=== PATIENT | female | born 1980 ===

== ENCOUNTER 2017-11-22 05:45 | Inpatient (IN) | payer BC, SELFPAY ==
[2017-11-10 11:12] LABS: PLATELET COUNT 233 10^3/uL (150-400)
--- NOTE | 2017-11-21 14:47 | GHP ---
DATE OF ADMISSION: 11/22/2017 CHIEF COMPLAINT: Very heavy menstrual cycles and history of clotting disorder, unable to tolerate ho rmonal contraceptive. HISTORY OF PRESENT ILLNESS: The patient is a 36-year-old, G3, P3 who plans to have an abdominoplasty done at the same time, presented last month as a new patient complaining of very heavy menstrual cyc les and interest in permanent sterilization. Has a history of clotting disorder and desires steriliz ation for this reason, and then also has a family history of ovarian cancer. Pelvic ultrasound showe d a thickened endometrium at 1.2 cm with no flow, slightly enlarged uterus, possibly having some micheline omyosis features, and otherwise within normal limits for her of ovaries. We discussed treatment opti ons for all of the above diagnosis and decided that the hysterectomy would be the best next step, as well as removal of her fallopian tubes. PAST MEDICAL HISTORY: Basically negative, except for this history of clotting disorder during her pr egnancies. PAST SURGICAL HISTORY: 3 low transverse C-sections, plus the knee surgery. She also had a ruptured appendix at the age of 1. SOCIAL HISTORY: Negative for tobacco, occasional alcohol, and negative for recreational drugs. ALLERGIES: Codeine, Darvocet, and penicillin, all of the above cause anaphylaxis. OBSTETRICAL HISTORY: Significant for she had 3 C-sections and undiagnosed clotting disorder during t he last 2 pregnancies. GYNECOLOGICAL HISTORY: Paps have been up to date and normal. She complains of very heavy menstrual cycles affecting her quality of life and ability to leave the house sometimes. Ultrasound showed bas ically normal uterus with thickened endometrial lining. EXAM: VITAL SIGNS: Blood pressure was 120/78. LUNGS: Clear to auscultation. COR: Regular rate a nd rhythm. ABDOMEN: Soft. Previous scar noted. PELVIC: Normal pelvis. ASSESSMENT/PLAN: Menorrhagia, desire for permanent sterilization, history of clotting disorder of un known etiology and could not tolerate hormonal contraceptive, and also history of ovarian cancer. We will proceed with abdominal hysterectomy and removal of her fallopian tubes, bilateral salpingecto my. Patient is aware there is some increased risk of bladder injury due to her 3 previous C-sections and also her history of ruptured appendix will also cause possibly adhesive disease, but consent sig blaine. Patient comfortable with plan and will proceed with surgery tomorrow. /[id number]/MODL
[2017-11-22] MEDS ORDERED: LIDOCAINE 1% 2 ML INJ ID PRN (05:51)
[2017-11-22] MEDS ORDERED: LR 1,000 ML IV ONE (05:51)
[2017-11-22] MEDS ORDERED: MIDAZOLAM 2 MG/2 ML VIAL ONE (07:10)
[2017-11-22] MEDS ORDERED: VANCOMYCIN 1 GM in NS 250 ML IV ONE (07:30)
[2017-11-22] MEDS ORDERED: VANCOMYCIN HCL/NORMAL SALINE 250 ML IV ONE (07:30)
[2017-11-22] MEDS ORDERED: BUPIVACAINE 0.5% 30 ML SDV ONE (07:32)
[2017-11-22] MEDS ORDERED: morphINE PF 5 MG/10 ML INJ ONE (07:34)
[2017-11-22] MEDS ORDERED: fentaNYL 100 MCG/2 ML INJ ONE (07:34)
[2017-11-22] MEDS ORDERED: LIDOCAINE 2% 100 MG/5 ML SYR ONE (07:34)
[2017-11-22] MEDS ORDERED: BUPIVACAINE/DEXTROSE 7.5MG/ML 2 ML SPINAL AMP SP ONE (07:34)
[2017-11-22] MEDS ORDERED: PROPOFOL 200 MG/20 ML VIAL ONE (07:35)
--- NOTE | 2017-11-22 08:57 | PDANEPAE ---
ANE History of Present Illness CODY/BSO ANE Past Medical History - Cardiovascular History Hx Hypertension: No Hx Arrhythmias: No Hx Chest Pain: No Hx Coronary Artery / Peripheral Vascular Disease: No Hx CHF / Valvular Disease: No Hx Palpitations: No - Pulmonary History Hx COPD: No Hx Asthma/Reactive Airway Disease: No Hx Recent Upper Respiratory Infection: No Hx Oxygen in Use at Home: No Hx Sleep Apnea: No Sleep Apnea Screening Result - Last Documented: Negative - Neurologic History Hx Cerebrovascular Accident: No Hx Seizures: No Hx Dementia: No - Endocrine History Hx Diabetes: No - Renal History Hx Renal Disorders: No - Liver History Hx Hepatic Disorders: No - Neurological & Psychiatric Hx Hx Neurological and Psychiatric Disorders: Yes Neurological / Psychiatric History Comment: FREQUENT MIGRAINES OCCASIONALLY NEEDS STRONGER MEDS - Cancer History Hx Cancer: No - Congenital Disorder History Hx Congenital Disorders: No - GI History Hx Gastrointestinal Disorders: Yes Gastrointestinal History Comment: CONSTIPATION - Other Health History Other Health History: DYSMENORRHEA. BRUISES EASILY - Chronic Pain History Chronic Pain: Yes (ABDOMINAL) - Surgical History Prior Surgeries: RHINOPLASTY/DEVIATED SEPTUM. APPY. X3. LT KNEE ACL ANE Review of Systems Review of Systems: - Exercise capacity METS (RN): 5 METS ANE Patient History - Allergies Allergies/Adverse Reactions: acetaminophen [From Percocet] Allergy (Verified 11/07/17 11:21) Anaphylaxis bee pollen Allergy (Verified 11/07/17 11:22) coconut Allergy (Verified 11/07/17 11:22) hydrocodone [From Vicodin] Allergy (Verified 11/07/17 11:21) Swelling/neck,face,throat oxycodone [From Percocet] Allergy (Verified 11/07/17 11:21) Anaphylaxis Penicillins Allergy (Verified 11/07/17 11:21) Anaphylaxis propoxyphene [From Darvocet-N] Allergy (Verified 11/07/17 11:21) Anaphylaxis - Home Medications Home Medications: Acetaminophen/ASA/Caffeine [Excedrin Tablet (*)] 1 each PO DAILY PRN 11/07/17 [ Last Taken 2 Weeks Ago ~11/08/17] Butal/Asp/Caffeine-Fiorinal [Fiorinal 50-325-40 mg Cap (RX)] 1 each PO DAILY PRN 11/07/17 [Last Taken 2 Weeks Ago ~11/08/17] Herbals/Supplements -Info Only 1 ea PO DAILY 11/07/17 [Last Taken 2 Weeks Ago ~ 11/08/17] Ibuprofen [Motrin (*)] 200 mg PO DAILY PRN 11/07/17 [Last Taken 2 Weeks Ago ~02/13] - NPO status NPO Since - Liquids (Date): 11/21/17 NPO Since - Liquids (Time): 21:00 NPO Since - Solids (Date): 11/21/17 NPO Since - Solids (Time): 20:00 - Smoking Hx Smoking Status: Never smoked - Family Anes Hx Family Hx Anesthesia Complications: NEG ANE Labs/Vital Signs - Labs Result Diagrams: 11/10/17 10:36 - Vital Signs Blood Pressure: 124/75 Heart Rate: 80 Respiratory Rate: 12 O2 Sat (%): 95 Height: 180.34 cm Weight: 69.4 kg ANE Physical Exam - Airway Neck exam: FROM Mallampati Score: Class 1 Mouth exam: normal dental/mouth exam - Pulmonary Pulmonary: no respiratory distress - Cardiovascular Cardiovascular: regular rate and rhythym - ASA Status ASA Status: II ANE Anesthesia Plan Anesthesia Plan: general endotracheal anesthesia, spinal (duramorph discussion with patient and surgeon, benefits outweigh potential risks)
[2017-11-22] MEDS ORDERED: LIDOCAINE 1% 300 MG/30 ML SDV ONE (08:58)
[2017-11-22] MEDS ORDERED: EPINEPHrine 1 MG/ML INJ ONE ×2 (08:58→09:00)
[2017-11-22] MEDS ORDERED: fentaNYL 250 MCG/5 ML INJ ONE (09:39)
[2017-11-22] MEDS ORDERED: BACITRACIN ZINC 14.2 GM OINTTUBE TP ONE (10:33)
[2017-11-22] MEDS ORDERED: ONDANSETRON DISINTEGRATING 4 MG TAB PO PRN (10:48)
--- NOTE | 2017-11-22 10:48 | POSTOPPROG ---
Post Op Note Date of Operation: 11/22/17 Surgeon: Inocencia Ruiz It Support Engineer: DAJA Dias Anesthesiologist: Katarina Schmidt Anesthesia: LMA, Spinal Pre-op Diagnosis: menorrhagia, family hx of fallopian cancer Post-op Diagnosis: same Indication: same Procedure: CODY/ BS Findings: nl pelvis Inf/Abcess present in the surg proc area at time of surgery?: No EBL: Minimal Complications: none
[2017-11-22] MEDS ORDERED: LR 1,000 ML IV SCH (11:00)
[2017-11-22] MEDS ORDERED: LR 500 ML IV PRN (11:07)
[2017-11-22] MEDS ORDERED: PROMETHAZINE HCL 25 MG/ML INJ ONE (11:07)
[2017-11-22] MEDS ORDERED: DIAZEPAM 5 MG/ML 1 ML SYR IVP PRN (11:07)
[2017-11-22] MEDS ORDERED: NALOXONE HCL 0.4 MG/ML INJ IVP PRN ×2 (11:07→12:00)
[2017-11-22] MEDS ORDERED: HYDROmorphONE/DILAUDID 2 MG/ML INJ IVP PRN (11:07)
[2017-11-22] MEDS ORDERED: MEPERIDINE 25 MG/0.5 ML AMP IVP PRN (11:07)
[2017-11-22] MEDS ORDERED: fentaNYL 100 MCG/2 ML INJ IVP PRN (11:07)
[2017-11-22] MEDS: PROMETHAZINE HCL 25 MG/ML INJ IVP PRN ×3 (11:20→11:40)
--- NOTE | 2017-11-22 11:27 | GOP ---
DATE OF OPERATION: 11/22/2017 SURGEON: Sean Massey Jr., MD BANDER OPERATOR: Eber Healy CST, by surgeon request. ANESTHESIA: General inhalational anesthetic. PREOPERATIVE DIAGNOSIS: Abdominal skin and fat excess with rectus diastasis. POSTOPERATIVE DIAGNOSIS: Abdominal skin and fat excess with rectus diastasis. PROCEDURE PERFORMED: Abdominoplasty with adjuvant flank Lipoplasty. FINDINGS: ESTIMATED BLOOD LOSS: 50 cc. INDICATIONS: The patient is a 36-year-old white female referred by Dr. Inocencia Ruiz for consider ation of an abdominoplasty in conjunction with a transabdominal hysterectomy. She was deemed an exce llent candidate for the combined procedures and was taken to the operating room with Dr. Ruiz for t hat purpose. DESCRIPTION OF PROCEDURE: After risks and benefits of the procedure were explained to the patient hi ghlighting bleeding, infection, seroma formation, hypertrophic or visible scarring, contour irregular ities, poor cosmetic outcome, numbness, abdominal wall weakness and need for revisional procedures, f ormal operative consent was obtained. She was taken to the operating room after adequate inhalationa l general anesthesia was introduced, she underwent an uncomplicated transabdominal hysterectomy. Ant erior abdominal wall muscle fascia was closed by Dr. Ruiz. After, the remainder of the abdominopla sty incisions were then injected with lidocaine containing adrenaline. The procedure began by placin g tumescent solution into the flanks for later lipoplasty. The inferior abdominoplasty incision was then made using a #10 blade. Electrocautery was used to dissect down through Jacinta's fascia. The a bdominoplasty incision was elevated and a stitch was placed in the umbilicus and a periumbilical inci marina was made with a 15 blade. Meticulous Metzenbaum scissor dissection of the umbilical stalk was p erformed. No hernias were noted. The abdominoplasty flap was elevated to the xiphoid and the costal margins. A significant rectus diastasis was plicated in the midline using buried [id number] 0 Nurolon sutures and oversewn with a running 0 V-lock 180 suture. The hysterectomy anterior fascia cl osure was reinforced with interrupted 2-0 Vicryl sutures. She was placed in a flexed position on the operating room table. The skin and fat excess were marked. Mons pubis was undermined and elevated. Two PRISCILA drains were placed. The anterior abdominal wall fascia was injected with 30 cc of 0.25% arpit in Marcaine. After copious irrigation, Jacinta's fascia was closed using 2-0 Vicryl suture. Skin edg es reapproximated using everting deep dermal 3-0 Monocryl suture due to significant skin laxity. Dog ears were excised to ensure a smooth contour. The final skin eversion was carried out with surgical sal. An elliptical incision was made at the level of the neoumbilicus. The umbilical stalk was delivered under minimal tension. It was inset using 4-0 Vicryl and 5-0 nylon suture through the lat eral abdominoplasty incisions. Lipoplasty was performed with a 4 mm Jackeline tip liposuction cannula until desired lateral sculpting had been optimized. She had drains placed to bulb suction. She had bacitracin, Xeroform, 4x4s, and a compressive dressing applied in the operating room. She was extub ated in the OR, taken to recovery room awake in stable condition. DRAINS: 2 PRISCILA drains placed. COMPLICATIONS: None. /[id number]/MODL
[2017-11-22] MEDS ORDERED: SCOPOLAMINE HYDROBROMIDE 1 MG/3 DAYS PATCH TD ONE (11:29)
[2017-11-22] MEDS ORDERED: SCOPOLAMINE HYDROBROMIDE 1 MG/3 DAYS PATCH TD SCH (11:30)
--- NOTE | 2017-11-22 11:37 | PDMN ---
Medical Necessity Medical necessity: MCG S650 hysterectomy, abdominal 2 days
[2017-11-22] MEDS ORDERED: ONDANSETRON 4 MG/2 ML VIAL IVP PRN (12:00)
[2017-11-22] MEDS ORDERED: METOCLOPRAMIDE 10 MG/2 ML VIAL IVP PRN (12:00)
[2017-11-22] MEDS ORDERED: RN MESSAGE:REGARDING ANALGESIC ORDERING DR MISC SCH (12:00)
[2017-11-22] MEDS: RN MESSAGE:DATE/TIME OF ADMIN MISC SCH (13:18)
--- NOTE | 2017-11-22 13:48 | GOP ---
DATE OF OPERATION: 11/22/2017 SURGEON: Inocencia Ruiz MD ANESTHESIA: Spinal with Marley Schmidt, DO, morphine for postop pain control and then general with LMA . PREOPERATIVE DIAGNOSIS: 1. Long-term history of menorrhagia. 2. Inability to take hormonal contraceptives due to unusual clotting disorder. 3. Desired permanent tubal sterilization. 4. Family history of ovarian cancer. POSTOPERATIVE DIAGNOSIS: 1. Long-term history of menorrhagia. 2. Inability to take hormonal contraceptives due to unusual clotting disorder. 3. Desired permanent tubal sterilization. 4. Family history of ovarian cancer. PROCEDURE PERFORMED: Total abdominal hysterectomy, bilateral salpingectomy. FINDINGS: Actually normal-appearing ovaries and fallopian tubes. Normal-appearing uterus and cervix . The bladder was adhered to the anterior surface of the uterus, but not significantly. ESTIMATED BLOOD LOSS: Minimal. INDICATIONS: Patient is a 36-year-old, G3, P3, with 3 previous low-transverse C-sections. Plans to have an abdominoplasty by Dr. Inderjit Massey and was hoping to move forward with hysterectomy at the celeste e time and through the same incision and plans did move forward with that today. Because she has a f amily history of ovarian cancer, we will remove her fallopian tubes, but will keep her ovaries for no w, as she is so young. Consent signed and patient is comfortable with plans including risk of bladde r injury due to 3 previous C-sections, which could increase her risk of bladder injury. DESCRIPTION OF PROCEDURE: Once the informed consent was signed, patient was taken to the operating r oom and placed under a spinal and then general anesthesia, placed in the supine position and prepped and draped in the usual sterile fashion. Anne catheter placed. Previous incision noted a nd scalpel used to make an 8 cm incision. This was carried down to the midline and fascia was cut in the middle and then opened laterally with the Marte scissors. The fascia was dissected off the under lying rectus muscles and then they were opened in the midline and peritoneum opened sharply. Periton eum was opened with the O'Saad/O'Holliday retractor and then moist laparotomy sponges were placed i nto the anterior abdomen. The bladder blade was placed to retract the bladder. Kochers were placed on the cornua of the uterus and the left round ligament was suture ligated and tagged and then transe cted with the Bovie. The same was done on the right. The anterior and posterior leaves of the broad ligament were gently opened with the Metzenbaum scissors and this was carried down to the bladder at tachment on the uterus and this was gently dissected off the lower uterine segment. There was a smal l amount of bleeding with this. Next, the utero-ovarian ligaments were isolated and clamped, cut and free-tied and suture ligated on the proximal end. On the distal end, it was suture ligated and then the uterine vessels were clamped, cut, and suture ligated. The cardinal ligaments were clamped, cut and suture ligated on each side and then the uterosacral ligament was clamped, cut, and suture ligat ed on each side. The vaginal cuff angles were clamped, cut and tagged and then the vagina was opened and the cervix and uterus were removed intact. Then the vaginal cuff suture was tied into the utero sacral ligaments for vaginal support and then the vagina was closed with 0 Vicryl interrupted sutures . Hemostasis was noted and the pelvis was copiously irrigated. Next, attention was turned back to t he fallopian tubes and the right fallopian tube was identified and clamped with the Anthony clamp and the right fallopian tube removed and handed off for specimen and then this was suture ligated. The s radha was done on the left. Again, reinspection of all the pedicles showed hemostasis and minimal bloo d loss. Ureters were also noted to be peristalsing normally. Instrument counts x2 correct. Then th e laparotomy sponges and retractors were removed. The rectus muscles were reapproximated with a sing le interrupted suture and the fascia was closed with a running 0 Vicryl and then this was copiously i rrigated. Then Dr. Inderjit Massey came in to do the abdominoplasty and I signed off from the OR. COMPLICATIONS: None. /[id number]/MODL
[2017-11-22] MEDS ORDERED: traMADol 50 MG TAB PO PRN (17:26)
[2017-11-22] MEDS: IBUPROFEN 600 MG TAB PO SCH ×2 (17:31→23:35)
[2017-11-22] MEDS: MEPERIDINE HCL 50 MG TAB PO PRN (19:28)
[2017-11-22] MEDS ORDERED: VANCOMYCIN 1.25 GM in NS 250 ML IV SCH (20:00)
[2017-11-23] MEDS: IBUPROFEN 600 MG TAB PO SCH ×3 (04:54→17:02)
[2017-11-23] MEDS: MEPERIDINE HCL 50 MG TAB PO PRN ×4 (04:58→22:57)
--- NOTE | 2017-11-23 11:20 | SOAPPROG ---
SOAP Progress Note Assessment/Plan: Assessment:POD #1 , still having off and on pain , but controlled by demerol oral, mauricio regular diet able to urinate and has ambulated Plan: 11/23/17 11:16 doing well , cont current course and likely d/c tomorrow Subjective: had more deep pelvic pain this morning , eating regular diet and has walked Objective: lungs CTA abd soft , monimal bowel sounds dressing still oozing but less Vital Signs Temp Pulse Resp BP Pulse Ox 36.2 C 57 L 14 86/45 L 100 11/23/17 08:35 11/23/17 08:35 11/23/17 08:35 11/23/17 08:35 11/23/17 08:35 Laboratory Results 11/10/17 10:36 11/22/17 11/23/17 11/24/17 05:59 05:59 05:59 Intake Total 3850 Output Total 3210 Balance 640
[2017-11-23] MEDS: RN MESSAGE:DATE/TIME OF ADMIN MISC SCH ×2 (11:53→12:41)
--- NOTE | 2017-11-23 12:17 | PDPAINCON ---
Pain Management Consultation Patient referred by : Joseph - Subjective Pain at rest (/10): 5 Pain with activity (/10): 5 Pain is: under control Side effects include: itchiness (Better today, but still itching) Activity: able to ambulate - Objective Technique: spinal opioid Site: lumbar Sensory and motor exam: block has resolved, no apparent ill effects Vital signs: stable Additional comments: IT morphine placed 11/22/17 prior to surgery. - Assessment/Plan Assessment/Plan: pain well-controlled, continue current mgmt Additional comments: Pt has a migraine currently. She states it is exactly like her typical migraines, for which IV toradol works well. IV toradol ordered for her.
[2017-11-23] MEDS: KETOROLAC 15 MG/1 ML SDV IVP ONE ×2 (12:35→13:22)
[2017-11-23] MEDS: DOCUSATE SODIUM 100 MG CAP PO SCH ×2 (12:36→22:57)
--- NOTE | 2017-11-23 13:30 | POSTANESTH ---
Post Anesthetic Evaluation Cardiovascular Status: Normal, Stable Respiratory Status: Normal, Stable Level of Consciousness/Mental Status: Can Participate in Eval Pain Control: Adequate, Prn Tx Ordered Nausea/Vomiting Control: Adequate, Prn Tx Ordered Complications Possibly Related to Anesthesia: None Noted
[2017-11-23] MEDS ORDERED: KETOROLAC 15 MG/1 ML SDV IM ONE (13:45)
[2017-11-23] MEDS: diphenhydrAMINE 25 MG CAP PO PRN ×2 (17:02→22:58)
[2017-11-24] MEDS: MEPERIDINE HCL 50 MG TAB PO PRN ×2 (05:00→11:00)
[2017-11-24] MEDS: IBUPROFEN 600 MG TAB PO SCH ×2 (05:00→11:55)
[2017-11-24] MEDS: diphenhydrAMINE 25 MG CAP PO PRN ×2 (05:01→11:00)
--- NOTE | 2017-11-24 10:46 | SOAPPROG ---
SOAP Progress Note Assessment/Plan: Assessment:POD #2 DOING VERY WELL , eating and starting to have bowel function , pain under control with demerol , feels ready to go home Plan: d/c home with rx for demerol f/u on 12/04/2017 for post op check , precautions given 11/23/17 11:16 doing well , cont current course and likely d/c tomorrow 11/24/17 10:42 Subjective: feeling better and less pain , no bleeding and eating well pos gas and no BM, ready to go home Objective: abd soft , pos BS , dressing in place and less drainage, lungs CTA , no vaginal drainage Vital Signs Temp Pulse Resp BP Pulse Ox 36.4 C 72 16 93/57 L 95 11/24/17 08:00 11/24/17 08:00 11/24/17 08:00 11/24/17 08:00 11/24/17 08:00 Laboratory Results 11/10/17 10:36 11/23/17 11/24/17 11/25/17 05:59 05:59 05:59 Intake Total 3850 1000 Output Total 3210 942 Balance 640 58
[2017-11-24] MEDS: DOCUSATE SODIUM 100 MG CAP PO SCH (11:00)
--- NOTE | 2017-11-24 11:13 | GDS ---
ADMISSION DIAGNOSES: Menorrhagia, history of clotting disorder, and desire for permanent sterilizati on to proceed with abdominal hysterectomy and bilateral salpingectomy. Also patient will undergo abd ominoplasty by Dr. Massey. DISCHARGE DIAGNOSES: Menorrhagia, history of clotting disorder, and desire for permanent sterilizati on to proceed with abdominal hysterectomy and bilateral salpingectomy. Also patient will undergo abd ominoplasty by Dr. Massey. The patient under went the above procedures. PROCEDURES: Total abdominal hysterectomy, bilateral salpingo-oophorectomy, and abdominoplasty. INDICATIONS FOR ADMISSION: The patient is a 36-year-old who has the above diagnosis and admitted for the above procedures. HOSPITAL COURSE: The patient's hospital course was fairly uneventful. She remained afebrile and vit al signs stable. She had fairly good pain control during her hospitalization and this included spina l intrathecal morphine for postop pain control, as well as oral Demerol, IV Toradol, and oral ibuprof en. The patient was discharged on postop day 2, ambulating well with some signs of bowel function an d good pain control. She will be discharged home on oral Demerol as well as ibuprofen and to follow up in 1-2 weeks for postop check. The patient was given postop instructions and will call if she has any concerns. /[id number]/MODL
[2017-11-24] MEDS ORDERED: KETOROLAC 15 MG/1 ML SDV IM ONE (12:00)
[2017-11-24 12:59] VITALS: BP 90/55
[2017-11-25] MEDS ORDERED: PATCH REMOVAL 1 EA PATCH TD SCH (11:24)
== END 2017-11-24 13:30 | disposition home or self-care (01) | DRG 743 ==
LOC: F3N 05:45 → FOB 12:30
PROVIDERS: ADMIT Obstetrics & Gynecology Gynecology; ATTEND Obstetrics & Gynecology Gynecology
PROC: 0UTC0ZZ Resection of Cervix, Open Approach (ICD-10-PCS; principal; 2017-11-22 07:15)
PROC: 0W0F0ZZ Alteration of Abdominal Wall, Open Approach (ICD-10-PCS; principal; 2017-11-22 07:15)
PROC: 0UT90ZZ Resection of Uterus, Open Approach (ICD-10-PCS; principal; 2017-11-22 07:15)
PROC: 0UT70ZZ Resection of Bilateral Fallopian Tubes, Open Approach (ICD-10-PCS; principal; 2017-11-22 07:15)
DX: N92.0 Excessive and frequent menstruation with regular cycle (principal); D75.9 Disease of blood and blood-forming organs, unspecified; Z80.41 Family history of malignant neoplasm of ovary
CPT/HCPCS: J0171; J1200; J1885; J2001; J2250; J2270; J2274; J2550; J2704; J3010; J3370